=== PATIENT | male | born 1970 | race Caucasian/White ===

== ENCOUNTER 2022-07-17 13:00 | Emergency (ER) | payer BC, SELFPAY ==
[2022-07-17 13:02] VITALS: BP 117/72; PULSE 72; RESP 14; TEMP 36.1; O2SAT 100; BMI 27.4
--- NOTE | 2022-07-17 14:19 | EDS_ITS ---
HPI <KRISTEN Devlin - Last Filed: 07/17/22 16:37> History of Present Illness Chief Complaint: Laceration Narrative Narrative: Patient presents with a laceration to his right thumb that he got while working with a turbinated bone grinder for his car. Patient's last tetanus shot was 5 years ago. PFSH <KRISTEN Devlin - Last Filed: 07/17/22 16:37> PFSH Allergy/AdvReac Type Severity Reaction Status Date / Time Penicillins [PCN] Allergy Other Verified 07/17/22 13:02 Surgical History Hx of eye surgery Social History Smoking Status: Former smoker ROS <KRISTEN Devlin - Last Filed: 07/17/22 16:37> ROS ED Constitutional Constitutional ED: Denies chills or fever(s) Eyes Eyes: Denies change in vision ENT ENT ED: Denies rhinorrhea or sore throat Cardiovascular Cardiovascular: Denies chest pain Respiratory/Chest Respiratory/Chest: Denies cough or dyspnea Gastrointestinal Gastrointestinal: Denies abdominal pain, nausea or vomiting Musculoskeletal Musculoskeletal: Denies myalgias Integumentary Reports laceration Neurologic Neurologic: Denies weakness Hematologic/Lymphatic Hematologic/Lymphatic: Denies easy bleeding EXAM <KRISTEN Devlin - Last Filed: 07/17/22 16:37> Physical Exam Const Vital Signs: 07/17/22 13:02 Temperature 96.9 F L Temperature Source Temporal Pulse Rate 72 Respiratory Rate 14 Blood Pressure 117/72 Blood Pressure Mean 87 Pulse Ox 100 Oxygen Delivery Method Room Air Positive well nourished and well developed General Appearance ED: well developed HEENT atraumatic Eyes PERRL and EOMs intact bilaterally Neck full ROM Resp normal respiratory effort and clear to auscultation bilaterally Cardio regular rhythm and no murmurs Rate: regular rate GI non-tender and no masses Back/Spine normal to inspection Extremity full ROM Extremity Narrative: 1.5 cm linear laceration of the right thumb above the interphalangeal joint. The laceration does not extend into the nailbed. Good capillary refill, sensation intact, radial pulses equal bilaterally. No ecchymosis or edema. Neuro oriented x3, moves all extremities, no focal motor deficits, no sensory deficits noted and gait normal Sensorium / Orientation: alert Psych mental status grossly normal and thought process normal Skin skin turgor normal Skin Narrative: See extremity. General Skin Exam: Negative for ecchymosis <Dr. Jimmy Ackerman MD - Last Filed: 07/17/22 15:09> Physical Exam Const Vital Signs: 07/17/22 13:02 Temperature 96.9 F L Temperature Source Temporal Pulse Rate 72 Respiratory Rate 14 Blood Pressure 117/72 Blood Pressure Mean 87 Pulse Ox 100 Oxygen Delivery Method Room Air PROC <KRISTEN Devlin - Last Filed: 07/17/22 16:37> Procedures Lacerations laceration : Length: 1.5 cm Depth: Skin Shape: Linear Prep: Sterile Conditions and Chlorhexadine Laceration repair: Irrigated and Lidocaine Irrigated (ml): 50 MDM <KRISTEN Devlin - Last Filed: 07/17/22 16:37> [facility] Narrative Medical decision making narrative: Laceration was extensively irrigated and cleaned. After cleaning the wound it was determined that there was really nothing amneable to suture. Bacitracin ointment was applied and the wound was dressed. She was instructed to clean wound daily with mild soap and water, to apply bacitracin/petroleum ointment to wound daily and dressed with a clean dry bandage. Patient was instructed to return if signs of infection develop such as increased redness/edema, purulent discharge, or fever develops. Patient is agreeable to plan. I am comfortable discharging patient home. Patient will also be seeing his PCP tomorrow who can then take a look at his laceration to ensure no signs of infection have started. <Dr. Jimmy Ackerman MD - Last Filed: 07/17/22 15:09> [facility] Treatment and Re-Evaluation Narrative: I have personally performed a face to face assessment of the patient and have reviewed the SILVANA Note. I performed a substantive portion of the visit including all aspects of the following. My connell findings include: History: Patient cut the dorsal medial aspect of his right nondominant thumb on an angle turbinated bone grinder at home. No other injury. Nothing makes better or worse. Minimal bleeding that is now stopped. Exam: There is missing tissue few medial and proximal to the right thumb nail. There is some grit in the area. It appears that this is likely not going to be amenable to suturing but we need to numb and clean this to see if there is a possibility of a small suture proximally. Extension and flexion of the thumb is normal. Sensation is still intact. Medical Decision Making: The area will be anesthetized and cleaned. After cleaning, we found that there really is nothing amenable to suturing. But we were able to get the wound good healthy and clean. This will have to heal by secondary intention. Discharge Plan Triage Chief Complaint: Laceration Other Complaint: Suture Remv ED Midlevel Provider: Doris Swift ED Provider: Jimmy Ackerman Dx/Rx/DC Orders Clinical Impression: Laceration Instructions: ED Laceration Extremity Primary Care Provider: Nitish Luong Referrals: Nitish Luong [Primary Care Provider] - 1 Week if not improving Activity Restrictions/Additional Instructions: Clean wound once daily with mild soap and water. You can apply an ointment such as bacitracin and keep it covered. return if signs of infection develop. Disposition Disposition: Home, Self Care Discharge Date/Time: 07/17/22 15:20
[2022-07-17] MEDS: Lidocaine 1% (20 ml mdv) 20 ML Vial INFILT (15:17)
== END 2022-07-17 15:20 | disposition home or self-care (01) ==
PROVIDERS: Emergency Provider Emergency Medicine; PCP Student in an Organized Health Care Education/Training Program; Visit Provider Emergency Medicine
DX: S61.011A Laceration without foreign body of right thumb without damage to nail, initial encounter (principal); W31.89XA Contact with other specified machinery, initial encounter; Y92.009 Unspecified place in unspecified non-institutional (private) residence as the place of occurrence of the external cause; Z87.891 Personal history of nicotine dependence
CPT/HCPCS: 12001; 99284